=== PATIENT | male | born 1985 | race Caucasian/White ===

== ENCOUNTER 2025-07-20 18:41 | Emergency (ER) | payer OTHER ==
[~2025-07-20] VITALS: Ht 172.7 cm; Wt 95.0 kg
[2025-07-20 18:43] VITALS: O2SAT 98
[2025-07-20 20:23] VITALS: BP 121/69; PULSE 78; RESP 18; TEMP 37; O2SAT 98
== END 2025-07-20 20:20 ==
LOC: ER 18:41
DX: R06.02 Shortness of breath (principal); F10.129 Alcohol abuse with intoxication, unspecified; Y90.9 Presence of alcohol in blood, level not specified
CPT/HCPCS: 71045; 99283